=== PATIENT | female | born 1995 | race African-American/Black ===

== ENCOUNTER 2018-07-04 22:04 | Emergency (ER) | payer SELFPAY ==
[~2018-07-04] VITALS: Ht 170.2 cm; Wt 69.7 kg
--- NOTE | 2018-07-04 22:06 | ED.ADGEN ---
Adult General Chief Complaint Chief Complaint ".. I got this bug bite on back of my Rt. leg...".. " Back on ... ".. " But now I got this rash every where.. maybe it is my new detergent..." HPI HPI Patient is a 23 year old female who presents with above hx in second bite to posterior right leg thigh area and complaints diffuse rash. Patient insect bite area has area of ecchymosis and surrounding erythema 4 cm x 10 cm. There is no striations but localized cellulitis/erythema. No adenopathy. No abscess. Patient has generalized rash and hives on other areas of the body which presented tonight. Has recently changed detergent. No recent travel. No history of specific ill contacts. Patient does not remember her last tetanus. No history immunosuppression. Patient is normally healthy. Review of Systems Review of Systems Constitutional: Denies fever or chills [] Eyes: Denies change in visual acuity, redness, or eye pain [] HENT: Denies nasal congestion or sore throat [] Respiratory: Denies cough or shortness of breath [] Cardiovascular: No additional information not addressed in HPI [] GI: Denies abdominal pain, nausea, vomiting, bloody stools or diarrhea [] : Denies dysuria or hematuria [] Musculoskeletal: Denies back pain or joint pain [] Integument: Complains of of generalized allergic like erythemic rash-hives and localized right thigh insect bite and cellulitis. Neurologic: Denies headache, focal weakness or sensory changes [] Endocrine: Denies polyuria or polydipsia [] All other systems were reviewed and found to be within normal limits, except as documented in this note. Family History Family History Noncontributory Current Medications Current Medications Current Medications Medications (Trade) Dose Ordered Sig/Sumit Start Time Stop Time Status Last Admin Dose Admin Ceftriaxone Sodium (Rocephin Im) 1 gm 1X ONCE 07/04/18 23:00 07/04/18 23:01 DC 07/04/18 23:10 1 GM Diphenhydramine HCl (Benadryl) 50 mg 1X ONCE 07/04/18 23:00 07/04/18 23:01 DC 07/04/18 23:16 50 MG Famotidine (Pepcid) 20 mg 1X ONCE 07/04/18 23:00 07/04/18 23:01 DC 07/04/18 23:07 20 MG Hydrocodone Bitartrate/ Ibuprofen (Vicoprofen 7.5-200) 2 tab 1X ONCE 07/04/18 23:00 07/04/18 23:01 DC 07/04/18 23:08 2 TAB Methylprednisolone Acetate (DEPO-Medrol IM) 40 mg 1X ONCE 07/04/18 23:00 07/04/18 23:01 DC 07/04/18 23:14 40 MG Tetanus/ Diphtheria Toxoids Adsorbed (Tenivac Vial) 0.5 ml ONCE ONCE 07/04/18 23:00 07/04/18 23:01 DC 07/04/18 23:09 0.5 ML Trimethoprim/ Sulfamethoxazole (Bactrim Ds) 1 tab 1X ONCE 07/04/18 23:00 07/04/18 23:01 DC 07/04/18 23:07 1 TAB Allergies Allergies Allergies Coded Allergies Type Severity Reaction Last Updated Verified No Known Drug Allergies 07/04/18 No Physical Exam Physical Exam Constitutional: Well developed, well nourished, no acute distress, non-toxic appearance. [] HENT: Normocephalic, atraumatic, bilateral external ears normal, oropharynx moist, no oral exudates, nose normal. [] Eyes: PERRLA, EOMI, conjunctiva normal, no discharge. [] Neck: Normal range of motion, no tenderness, supple, no stridor. [] Cardiovascular:Heart rate regular rhythm, no murmur [] Lungs & Thorax: Bilateral breath sounds clear to auscultation [] Abdomen: Bowel sounds normal, soft, no tenderness, no masses, no pulsatile masses. [] Skin: Warm, dry, no erythema, no rash. [] Back: No tenderness, no CVA tenderness. [] Extremities: No tenderness, no cyanosis, no clubbing, ROM intact, no edema. [] Neurologic: Alert and oriented X 3, normal motor function, normal sensory function, no focal deficits noted. [] Psychologic: Affect normal, judgement normal, mood normal. [] Current Patient Data Vital Signs Vital Signs Date Time Temp Pulse Resp B/P (MAP) Pulse Ox O2 Delivery O2 Flow Rate FiO2 07/04/18 23:54 73 16 128/73 (91) 100 Room Air 07/04/18 22:12 98.5 Lab Results Laboratory Tests Test 07/04/18 21:44 07/04/18 22:22 POC Urine HCG, Qualitative hcg negative (Negative) Urine Collection Type Unknown Urine Color Yellow Urine Clarity Hazy Urine pH 6.0 Urine Specific [place] >=1.030 Urine Protein 30 mg/dl (NEG-TRACE) Urine Glucose (UA) Neg mg/dL (NEG) Urine Ketones (Stick) 15 mg/dL (NEG) Urine Blood Neg (NEG) Urine Nitrite Neg (NEG) Urine Bilirubin Neg (NEG) Urine Urobilinogen Dipstick 1 mg/dL (0.2 mg/dL) Urine Leukocyte Esterase Neg (NEG) Urine RBC 1-2 /HPF (0-2) Urine WBC 1-4 /HPF (0-4) Urine Squamous Epithelial Cells Mod /LPF Urine Bacteria Mod /HPF (0-FEW) Urine Mucus Mod /LPF Urine Opiates Screen Neg (NEG) Urine Methadone Screen Neg (NEG) Urine Barbiturates Neg (NEG) Urine Phencyclidine Screen Neg (NEG) Urine Amphetamine/Methamphetamine Neg (NEG) Urine Benzodiazepines Screen Neg (NEG) Urine Cocaine Screen Neg (NEG) Urine Cannabinoids Screen Neg (NEG) Urine Ethyl Alcohol Neg (NEG) EKG EKG [] Radiology/Procedures Radiology/Procedures [] Course & Med Decision Making Course & Med Decision Making Pertinent Labs and Imaging studies reviewed. (See chart for details) Prior to determine etiology or cause recurrent allergic rash. Eliminate any new detergents soaps or personal hygiene products. Return eliminate any new foods that have been tried. Massage area of cellulitis and insect bites with Polysporin 4 times a day. Take Bactrim DS twice day for 7 days. Follow-up primary care. Return if any concerns. [] Push fluids. Final Impression Final Impression 1. Rash[]- allergic 2. Insect Bite- suspect Brown recluse bite 3. Urinary tract infection Dragon Disclaimer Dragon Disclaimer This electronic medical record was generated, in whole or in part, using a voice recognition dictation system. BRANDYN BAKER MD Jul 04, 2018 22:06
[2018-07-04] MEDS ORDERED: HYDR-79 PO (22:38)
[2018-07-04] MEDS ORDERED: RANI150T21 PO (22:39)
[2018-07-04] MEDS ORDERED: SULF1TAB24 PO (22:40)
[2018-07-04 22:55] LABS: BARBITURATES NEG (NEG); BENZODIAZEPINES NEG (NEG); CANNABINOIDS NEG (NEG); COCAINE NEG (NEG); METHADONE NEG (NEG); OPIATES NEG (NEG); PHENCYCLIDINE NEG (NEG)
[2018-07-04 22:56] LABS: AMPHETAMINE/METHAMPHETAMINE NEG (NEG)
[2018-07-04] MEDS ORDERED: SMZ/TMP 800/160MG TABLET. PO ONE (23:00)
[2018-07-04] MEDS ORDERED: cefTRIAXone IM 1 GM VIAL IM ONE (23:00)
[2018-07-04] MEDS ORDERED: TETANUS AND DIPHTHERIA TOX/PF 0.5 ML VIAL. VAX IM ONE (23:00)
[2018-07-04] MEDS ORDERED: methylPREDNISolone ACETATE 40 MG/ML VIAL. IM ONE (23:00)
[2018-07-04] MEDS ORDERED: FAMOTIDINE 20 MG TABLET PO ONE (23:00)
[2018-07-04] MEDS ORDERED: diphenhydrAMINE 50 MG/ML VIAL IM ONE (23:00)
[2018-07-04] MEDS ORDERED: HYDROcodon/IBUPROFEN 7.5/200MG 1 TAB TABLET PO ONE (23:00)
[2018-07-04 23:02] LABS: BILIRUBIN,URINE NEG (NEG); CLARITY,URINE HAZY; COLOR,URINE YELLOW; GLUCOSE,URINE NEG (NEG)
[2018-07-04 23:03] LABS: BACTERIA,URINE MOD /HPF (0-FEW); NITRITE,URINE NEG (NEG); SQUAMOUS EPITHELIAL CELL,UR MOD /LPF; UROBILINOGEN,URINE 1 mg/dL (0.2 mg/dL)
[2018-07-04 23:54] VITALS: BP 128/73
== END 2018-07-04 23:57 | disposition home or self-care (01) ==
LOC: ER 22:04
DX: S80.861A Insect bite (nonvenomous), right lower leg, initial encounter (principal); L03.115 Cellulitis of right lower limb; N39.0 Urinary tract infection, site not specified; W57.XXXA Bitten or stung by nonvenomous insect and other nonvenomous arthropods, initial encounter; Y93.89 Activity, other specified; Y92.89 Other specified places as the place of occurrence of the external cause; Y99.8 Other external cause status
CPT/HCPCS: 36415; 80307; 81001; 81025; 87086; 90471; 90714; 96372; 99284; J0696; J1030; J1200; G0479